=== PATIENT | male | born 1995 | race Two or more races ===

== ENCOUNTER 2022-03-11 05:30 | Emergency (ER) | payer OTHER ==
[~2022-03-11] VITALS: Ht 170.2 cm; Wt 80.0 kg
[2022-03-11] MEDS ORDERED: cloNIDine HCL 0.1 MG TAB PO ONE (07:30)
[2022-03-11] MEDS ORDERED: LIDOCAINE 1% HCL (LOCAL ANESTH.) INJ 20ML MDV ONE (08:14)
[2022-03-11] MEDS ORDERED: LIDOCAINE 1% HCL (LOCAL ANESTH.) INJ 20ML MDV IJ ONE (08:15)
[2022-03-11 09:22] VITALS: BP 134/90
== END 2022-03-11 09:31 | disposition home or self-care (01) ==
LOC: ER 05:30 → EDBD 05:30 → ER 09:31
DX: S02.2XXA Fracture of nasal bones, initial encounter for closed fracture (principal); S01.511A Laceration without foreign body of lip, initial encounter; I10 Essential (primary) hypertension; V89.2XXA Person injured in unspecified motor-vehicle accident, traffic, initial encounter; Y93.89 Activity, other specified; Y92.89 Other specified places as the place of occurrence of the external cause; Y99.8 Other external cause status
CPT/HCPCS: 12014; 70450; 70486; 71250; 99284; J2001